=== PATIENT | male | born 2000 | race Caucasian/White ===

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

== ENCOUNTER 2022-06-02 22:07 | Emergency (ER) | payer MEDICAID, OTHER ==
[~2022-06-02] VITALS: Ht 170.2 cm; Wt 64.9 kg
[2022-06-02 22:28] VITALS: BP_SYST 94
--- NOTE | 2022-06-02 22:37 | NUR ---
Patient triaged and placed in waiting room. VSS and patient appears in no acute distress at this time. Accompanied by SIG OTHER, awaiting available bed, and MD Broderick notified of need for MSE.
--- NOTE | 2022-06-02 22:44 | NUR ---
Patient to ER bed 3 to gown for evaluation. Side rails up. Report given to ESVIN Mckenzie.
[2022-06-02] MEDS ORDERED: ONDANSETRON HCL 4 MG/2 ML VIAL IVP ONE (22:45)
[2022-06-02] MEDS ORDERED: NACL 0.9% 1,000 ML IV ONE (22:45)
[2022-06-03] MEDS ORDERED: ONDA8TAB60 PO (00:02)
[2022-06-03] MEDS ORDERED: LOPE2CAP PO (00:02)
[2022-06-03 01:10] VITALS: BP_SYST 106
--- NOTE | 2022-06-03 01:10 | NUR ---
Patient given written and verbal discharge instructions and verbalizes understanding. ER MD discussed with patient the results and treatment provided. Patient in stable condition. ID arm band removed. IV catheter removed intact and dressing applied, no active bleeding. Rx of IMODIUM & ZOFRAN given. Patient educated on pain management and to follow up with PMD. Pain Scale 0/10. Opportunity for questions provided and answered. Medication side effect fact sheet provided.
== END 2022-06-03 01:10 | disposition home or self-care (01) ==
LOC: SED 22:07
DX: R11.2 Nausea with vomiting, unspecified (principal); R19.7 Diarrhea, unspecified; R42 Dizziness and giddiness; Z79.899 Other long term (current) drug therapy
CPT/HCPCS: 99283; 96374; 96361; J2405; J7030

== ENCOUNTER 2023-08-05 08:16 | Inpatient (IN) | payer MEDICAID, OTHER ==
[~2023-08-05] VITALS: Ht 170.2 cm; Wt 67.6 kg
[2023-08-05 08:16] VITALS: BP_SYST 118; PULSE 76; RESP 18; TEMP 97.3; O2SAT 99
[~2023-08-05 08:16] MED LIST: CEPH-548 PO; IBUP-1969 PO; LOPE2CAP PO; ONDA8TAB60 PO
[2023-08-05 08:56] LABS: BASOPHILS # (AUTO) 0.1 K/uL (0.0-0.2); BASOPHILS % (AUTO) 0.5 % (0.0-2.0); EOSINOPHILS % (AUTO) 0.1 % (0.0-4.0); HEMATOCRIT 51.9 % (36-54); HEMOGLOBIN 18.2 g/dL (14.0-18.0); LYMPHOCYTES # (AUTO) 0.5 K/uL (1.0-5.5); LYMPHOCYTES % (AUTO) 2.9 % (20.5-51.5); MEAN CORPUSCULAR HEMOGLOBIN 31 pg (27-31); MEAN CORPUSCULAR HGB CONC 35 % (32-36); MEAN CORPUSCULAR VOLUME 89 fL (79.0-98.0); MONOCYTES # (AUTO) 0.6 K/uL (0.0-1.0); MONOCYTES % (AUTO) 3.3 % (1.7-9.3); NEUTROPHILS # (AUTO) 16.7 K/uL (1.8-7.7); NEUTROPHILS % (AUTO) 93.2 % (40.0-70.0); PLATELET COUNT (AUTO) 187 K/uL (130-430); RED BLOOD CELL COUNT(AUTO) 5.86 MIL/uL (4.2-6.2); RED CELL DISTRIBUTION WIDTH 13.5 % (9.0-15.0); WHITE BLOOD COUNT (AUTO) 17.9 K/uL (4.8-10.8)
[2023-08-05 09:02] LABS: CALCIUM 10.2 mg/dL (8.4-11.0); CREATININE 1.25 mg/dL (0.55-1.30); POTASSIUM 4.6 mmol/L (3.5-5.1)
[2023-08-05] MEDS: NACL 0.9% 1,000 ML IV ONE ×3 (09:02→13:22)
[2023-08-05] MEDS: ONDANSETRON HCL 4 MG/2 ML VIAL IVP ONE (09:02)
[2023-08-05 09:06] LABS: ALBUMIN 5.3 g/dL (3.4-4.8); TOTAL BILIRUBIN 0.8 mg/dL (0.0-1.0); TOTAL PROTEIN, SERUM 9.7 g/dL (6.4-8.3)
[2023-08-05 09:27] LABS: INFLUENZA TYPE A Negative (NEGATIVE); INFLUENZA TYPE B NEGATIVE (NEGATIVE)
[2023-08-05 10:05] LABS: BILIRUBIN,URINE 2+ (NEGATIVE); BLOOD, URINE NEGATIVE (NEGATIVE); CLARITY/URINE CLEAR (CLEAR); COLOR,URINE YELLOW (YELLOW); GLUCOSE,URINE NEGATIVE (NEGATIVE); KETONES,URINE 1+ (NEGATIVE); LEUKOCYTE ESTERASE ,URINE NEGATIVE (NEGATIVE); NITRITE, URINE POSITIVE (NEGATIVE); PROTEIN URINE 2+ (NEGATIVE)
[2023-08-05 10:28] LABS: BACTERIA,URINE RARE /HPF (None Seen); HYALINE CASTS, URINE 0-3 /LPF (None Seen); RBC,URINE 0-3 /HPF (0-3); WBC,URINE 0-3 /HPF (0-3)
[2023-08-05] MEDS: KETOROLAC TROMETHAMINE 30 MG VIAL IVP ONE (10:34)
[2023-08-05 14:23] LABS: MUCUS,URINE 3+ /LPF (None Seen)
[2023-08-05] MEDS ORDERED: ALBUTEROL SULFATE 0.083% 2.5 MG/3 ML VIAL.NEB INH PRN (14:45)
[2023-08-05] MEDS ORDERED: IPRATROPIUM BROM 0.5 MG/2.5 ML VIAL.NEB (ATROVENT) INH PRN (14:45)
[2023-08-05] MEDS ORDERED: MORPHINE 2 MG/ML INJ. SYRINGE IVP PRN (14:45)
[2023-08-05] MEDS ORDERED: ONDANSETRON HCL 4 MG/2 ML VIAL IVP PRN (14:45)
[2023-08-05] MEDS ORDERED: LORazepam 2 MG/ML VIAL IVP PRN (14:45)
[2023-08-05 15:30] VITALS: BP_SYST 107; PULSE 77; RESP 16; TEMP 98.8
[2023-08-05] MEDS ORDERED: HYDROcodone/ACETAMIN 5-325 MG TAB (NORCO/ VICODIN) PO PRN (16:15)
[2023-08-05] MEDS ORDERED: ZOLPIDEM TARTRATE 5 MG TABLET PO PRN (16:15)
[2023-08-05 17:09] VITALS: BP_SYST 112; PULSE 75; O2SAT 99
[2023-08-05] MEDS: PANTOPRAZOLE SODIUM 40 MG/VIAL (PROTONIX) IVP ONE (17:29)
[2023-08-05] MEDS: NACL 0.9% 1,000 ML IV SCH (17:29)
[2023-08-05] MEDS: PIPERACILLIN/TAZO 3.375 GM in D5W 50 ML IV ONE (17:30)
[2023-08-05 17:54] VITALS: O2SAT 100
[2023-08-05 19:00] VITALS: BP_SYST 112; PULSE 86; RESP 18; TEMP 97.7; O2SAT 100; O2SAT 98
[2023-08-05 21:00] VITALS: BP_SYST 109; PULSE 83; RESP 18; TEMP 97.7; O2SAT 100
[2023-08-05] MEDS ORDERED: ACETAMINOPHEN 325 MG TABLET PO PRN ×2 (21:30)
[2023-08-05] MEDS: HYDROcodone/ACETAMIN 10-325 MG TAB PO PRN (22:10)
[2023-08-05] MEDS: PIPERACILLIN/TAZO 3.375 GM in D5W 50 ML IV SCH (22:11)
[2023-08-06] VITALS (8 sets, daily range): BP systolic 91–99; PULSE 61–79; RESP 16–18; TEMP 97–97.9; O2SAT 94–100
[2023-08-06] MEDS: PANTOPRAZOLE SODIUM 40 MG/VIAL (PROTONIX) IVP SCH (05:15)
[2023-08-06 05:42] LABS: BASOPHILS % (AUTO) 0.3 % (0.0-2.0); EOSINOPHILS # (AUTO) 0.1 K/uL (0.0-0.4); EOSINOPHILS % (AUTO) 1.5 % (0.0-4.0); HEMATOCRIT 37.8 % (36-54); HEMOGLOBIN 13.2 g/dL (14.0-18.0); LYMPHOCYTES # (AUTO) 1.5 K/uL (1.0-5.5); MEAN CORPUSCULAR HEMOGLOBIN 31 pg (27-31); MEAN CORPUSCULAR HGB CONC 35 % (32-36); MEAN CORPUSCULAR VOLUME 89 fL (79.0-98.0); MONOCYTES # (AUTO) 0.6 K/uL (0.0-1.0); MONOCYTES % (AUTO) 11.3 % (1.7-9.3); NEUTROPHILS # (AUTO) 3.3 K/uL (1.8-7.7); NEUTROPHILS % (AUTO) 59.9 % (40.0-70.0); PLATELET COUNT (AUTO) 126 K/uL (130-430); RED BLOOD CELL COUNT(AUTO) 4.25 MIL/uL (4.2-6.2); RED CELL DISTRIBUTION WIDTH 13.5 % (9.0-15.0); WHITE BLOOD COUNT (AUTO) 5.5 K/uL (4.8-10.8)
[2023-08-06 06:00] LABS: CALCIUM 8.1 mg/dL (8.4-11.0); CREATININE 1.13 mg/dL (0.55-1.30); POTASSIUM 4.3 mmol/L (3.5-5.1)
[2023-08-06] MEDS ORDERED: LEVO-62 PO (15:44)
== END 2023-08-06 16:25 | disposition home or self-care (01) | DRG 872 ==
LOC: SED 08:16 → SMU 14:32
PROVIDERS: ADMIT Internal Medicine; ATTEND Internal Medicine
DX: A41.9 Sepsis, unspecified organism (principal); K52.9 Noninfective gastroenteritis and colitis, unspecified; Z20.822 Contact with and (suspected) exposure to COVID-19; F17.210 Nicotine dependence, cigarettes, uncomplicated
CPT/HCPCS: 36415; 80048; 80053; 81000; 81001; 81015; 85025; 87040; 87045-TC; 87046; 96361; 96374; 96375; 99285; C9113; J1885; J2405; J2543; J7060